=== PATIENT | male | born 1960 | race Caucasian/White ===

== ENCOUNTER 2022-01-18 18:59 | Emergency (ER) | payer OTHER ==
[2022-01-18 19:39] VITALS: BP 126/76; PULSE 77; TEMP 97.9; BMI 31.2
== END 2022-01-18 22:06 | disposition home or self-care (01) ==
LOC: JERFT 18:59
DX: T16.2XXA Foreign body in left ear, initial encounter (principal)
CPT/HCPCS: 99281-25